=== PATIENT | male | born 1955 | race Caucasian/White ===

== ENCOUNTER → 2016-07-11 | Outpatient (CLI) | payer MEDICARE ==
[2016-07-11 12:28] LABS: HEMOGLOBIN 16.6 gm/dl (14.0-17.5); RED BLOOD COUNT 5.03 M/UL (4.20-5.50); WHITE BLOOD COUNT 9.2 K/UL (4.5-11.0)
[2016-07-11 12:56] LABS: BUN/CREATININE RATIO 14 (0-10)
== END ==
LOC: LAB 10:43
PROVIDERS: Emergency Medicine
DX: Z00.00 Encounter for general adult medical examination without abnormal findings (principal); F17.210 Nicotine dependence, cigarettes, uncomplicated; I10 Essential (primary) hypertension; J20.8 Acute bronchitis due to other specified organisms; J43.8 Other emphysema; J44.9 Chronic obstructive pulmonary disease, unspecified; K21.9 Gastro-esophageal reflux disease without esophagitis; R10.13 Epigastric pain; R10.30 Lower abdominal pain, unspecified; R35.0 Frequency of micturition; E78.2 Mixed hyperlipidemia
CPT/HCPCS: 36415; 80053; 85027

== ENCOUNTER → 2016-07-13 | Outpatient (CLI) | payer MEDICARE | LOC: LAB 10:13 | DX: Z00.00 Encounter for general adult medical examination without abnormal findings (principal); R35.0 Frequency of micturition; R10.30 Lower abdominal pain, unspecified; R10.13 Epigastric pain; K21.9 Gastro-esophageal reflux disease without esophagitis; J44.9 Chronic obstructive pulmonary disease, unspecified; J43.8 Other emphysema; J20.8 Acute bronchitis due to other specified organisms; I10 Essential (primary) hypertension; F17.210 Nicotine dependence, cigarettes, uncomplicated; E78.2 Mixed hyperlipidemia | CPT/HCPCS: 36415; 80061; 83704 ==

== ENCOUNTER → 2016-08-02 | Outpatient (CLI) | payer MEDICARE | LOC: KOH-I 09:02 | DX: M54.2 Cervicalgia (principal); M51.36 Other intervertebral disc degeneration, lumbar region; M47.816 Spondylosis without myelopathy or radiculopathy, lumbar region; M50.31 Other cervical disc degeneration, high cervical region; M99.71 Connective tissue and disc stenosis of intervertebral foramina of cervical region; M25.78 Osteophyte, vertebrae | CPT/HCPCS: 72125; 72131 ==

== ENCOUNTER → 2020-05-20 | Outpatient (CLI) | payer MEDICARE ==
[2020-05-20 14:58] LABS: BUN/CREATININE RATIO 11 (0-10)
[2020-05-25 12:14] LABS: CHOLESTEROL, TOTAL 229 mg/dL (100-199); HDL SIZE 8.7 nm (>=9.2); HDL-C 52 mg/dL (>39); HDL-P (TOTAL) 34.1 umol/L (>=30.5); LARGE HDL-P 4.6 umol/L (>=4.8); LARGE VLDL-P 17.7 nmol/L (<=2.7); LDL SIZE 20.7 nm (>20.5); LDL SIZE 20.7 nm (>=20.8); LDL-C 129 mg/dL (0-99); LDL-P 1669 nmol/L (<1000); LP-IR SCORE 82 (<=45); SMALL LDL-P 786 nmol/L (<=527); TRIGLYCERIDES 272 mg/dL (0-149); VLDL SIZE 59.6 nm (<=46.6)
== END ==
LOC: LAB 11:55
PROVIDERS: Emergency Medicine
DX: I10 Essential (primary) hypertension (principal); R35.0 Frequency of micturition; E78.2 Mixed hyperlipidemia; R35.1 Nocturia
CPT/HCPCS: 80048; 80061; 84443

== ENCOUNTER → 2020-08-10 | Outpatient (CLI) | payer MEDICARE ==
[2020-08-10 12:06] LABS: BUN/CREATININE RATIO 10 (0-10)
== END ==
LOC: LAB 10:17
PROVIDERS: Emergency Medicine
DX: Z00.00 Encounter for general adult medical examination without abnormal findings (principal); R10.30 Lower abdominal pain, unspecified; R35.0 Frequency of micturition; J20.8 Acute bronchitis due to other specified organisms; E78.2 Mixed hyperlipidemia; J43.8 Other emphysema
CPT/HCPCS: 36415; 80053; 84153